=== PATIENT | male | born 1960 | race Two or more races ===

== ENCOUNTER 2024-12-07 18:14 | Emergency (ER) | payer MEDICAID ==
[~2024-12-07] VITALS: Ht 175.3 cm; Wt 91.4 kg
[2024-12-07 18:53] LABS: Basophils # (auto) 0 10 ^3/uL (0-0.2); Basophils % (auto) 0.4 % (0.0-2.0); Eosinophils # (auto) 0.1 10 ^3/uL (0-0.8); Eosinophils % (auto) 0.5 % (0.0-7.0); Hemoglobin 15.1 g/dL (13.5-17.5); Lymphocytes # (auto) 5.5 10 ^3/uL (0.4-5.4); Lymphocytes % (auto) 50.6 % (10.0-50.0); Mean Corpuscular Hgb Conc. 33.5 g/dL (32.0-36.0); Mean Corpuscular Volume 86.5 fL (80.0-100.0); Monocytes # (auto) 1.2 10 ^3/uL (0-1.3); Monocytes % (auto) 10.8 % (0.0-12.0); Neutrophils # (auto) 4.1 10 ^3/uL (1.6-8.6); Neutrophils % (auto) 37.7 % (37.0-80.0); Nucleated Red Blood Cells % 0.1 %; Platelet Count (auto) 262 10^3/uL (140-450); Red Cell Distribution Width 13.7 % (11.8-14.3); White Blood Cell 10.9 10^3/uL (4.4-10.8)
[2024-12-07 19:03] LABS: Alanine Aminotransferase 17 U/L (7-40); Albumin 4.5 g/dL (3.2-4.8); Anion Gap 11 (5-15); BUN/Creatinine Ratio 9.7 (10.0-20.0); Bilirubin, Total 0.5 mg/dL (0.2-1.0); Blood Urea Nitrogen 15 mg/dL (9-23); Carbon Dioxide 25 mmol/L (20-31); Chloride 98 mmol/L (98-107); Total Protein 6.8 g/dL (5.7-8.2)
--- NOTE | 2024-12-07 19:12 | ED.PDOC ---
History of Present Illness HPI Comments 64 y/o overweight M, with a history of DM, HTN, and polysubstance abuse, presents with c/o hyperglycemia, dizziness, nausea, and vomiting, today. Patient endorses on noticing his blood glucose levels being elevated following recent onset of remaining aforementioned symptoms, earlier, today. Patient reports c ompliancy with his Metformin medication he takes BID, with last use being this morning. He denies any hematemesis, polyuria, polydipsia, polyphagia, or other associated symptoms or modifiers at this time. Chief Complaint: Hyperglycemia Time Seen by MD: 18:45 Reviewed Notes: Nurses Notes, Medications, Allergies Allergies: Uncoded Allergies: ASA (Allergy, Unknown, 12/07/24) Home Meds Active Scripts Metformin Hydrochloride (Metformin Hcl) 1,000 Mg Tab, 1 TAB PO BID for 90 Days, #180 TAB 5 Refills Prov:TODD SHAHID MD 12/07/24 Information Source: Patient Mode of Arrival: Ambulatory Severity: Moderate Timing: Hours Duration: Since onset Prehospital treatment: None Past Medical History PAST MEDICAL HISTORY: DM, HTN Surgical History: Denies all surgeries Family History Family History: Unknown Social History Smoker: Cigarettes Alcohol: Occasionally Drugs: Marijuana Lives In: Home All Other Systems: Reviewed and Negative (Comprehensive systems review obtained and negative except for what is stated in the HPI.) Physical Exam General Appearance: Mild Distress, Other (overweight) HEENT: Normal ENT Inspection, Pharynx Normal, TMs Normal Neck: Full Range of Motion, Non-Tender, Normal, Normal Inspection Respiratory: Chest Non-Tender, Lungs Clear, No Accessory Muscle Use, No Respiratory Distress, Normal Breath Sounds Cardiovascular: No Edema, No JVD, No Murmur, No Gallop, Normal Peripheral Pulses, Regular Rate/Rhythm Breast Exam: Deferred Gastrointestinal: No Organomegaly, Non Tender, No Pulsatile Mass, Normal Bowel Sounds, Soft Genitalia: Deferred Pelvic: Deferred Rectal: Deferred Extremities: No calf tenderness, Normal capillary refill, Normal inspection, Normal range of motion, Non-tender, No pedal edema Musculoskeletal : Apperance: Normal 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 Was a procedure done?: No Differential Dx Considerations may include: hyperglycemia, inappropriate medication dosage, vertigo, gastritis, gastroenteritis, among others X-Ray, Labs, Meds, VS Vital Signs Date Time Temp Pulse Resp B/P (MAP) Pulse Ox O2 Delivery O2 Flow Rate FiO2 12/07/24 18:14 97.0 60 20 122/63 (82) 97 97.0 Lab Test 12/07/24 18:52 12/07/24 18:50 12/07/24 18:38 12/07/24 18:29 Range/Units POC Glucose 534 *H 509 *H 70-106 mg/dl White Blood Count 10.9 H 4.4-10.8 10^3/uL Red Blood Count 5.20 4.5-5.90 10^6/uL Hemoglobin 15.1 13.5-17.5 g/dL Hematocrit 45.0 41.0-53.0 % Mean Corpuscular Volume 86.5 80.0-100.0 fL Mean Corpuscular Hemoglobin 29.0 28.0-32.0 pg Mean Corpuscular Hemoglobin Concent 33.5 32.0-36.0 g/dL Red Cell Distribution Width 13.7 11.8-14.3 % Platelet Count 262 140-450 10^3/uL Mean Platelet Volume 9.2 6.9-10.8 fL Neutrophils (%) (Auto) 37.7 37.0-80.0 % Lymphocytes (%) (Auto) 50.6 H 10.0-50.0 % Monocytes (%) (Auto) 10.8 0.0-12.0 % Eosinophils (%) (Auto) 0.5 0.0-7.0 % Basophils (%) (Auto) 0.4 0.0-2.0 % Neutrophils # (Auto) 4.1 1.6-8.6 10 ^3/uL Lymphocytes # (Auto) 5.5 H 0.4-5.4 10 ^3/uL Monocytes # (Auto) 1.2 0-1.3 10 ^3/uL Eosinophils # (Auto) 0.1 0-0.8 10 ^3/uL Basophils # (Auto) 0 0-0.2 10 ^3/uL Nucleated Red Blood Cells 0.1 % Sodium Level 134 L 136-145 mmol/L Potassium Level 4.0 3.5-5.1 mmol/L Chloride Level 98 98-107 mmol/L Carbon Dioxide Level 25 20-31 mmol/L Anion Gap 11 5-15 Blood Urea Nitrogen 15 9-23 mg/dL Creatinine 1.54 H 0.700-1.30 mg/dL Glomerular Filtration Rate Calc 50 >90 mL/min BUN/Creatinine Ratio 9.7 L 10.0-20.0 Serum Glucose 514 *H 74-106 mg/dL Calcium Level 10.0 8.7-10.4 mg/dL Total Bilirubin 0.5 0.2-1.0 mg/dL Aspartate Amino Transferase (AST) < 8 L 13-40 U/L Alanine Aminotransferase (ALT) 17 7-40 U/L Alkaline Phosphatase 121 H 46-116 U/L Total Protein 6.8 5.7-8.2 g/dL Albumin 4.5 3.2-4.8 g/dL Blood Gas Specimen Type Venous Blood Gas Sample Site Vbg - n/a Blood Gas Patient Temperature 37.0 Arterial Blood Date Drawn [id number] Lb Test Yes Venous Blood pH 7.385 7.320-7.430 Venous Blood pCO2 at Patient Temp 34.4 L 38.0-54.0 mmHg Venous Blood pO2 at Patient Temp 47.8 23.0-48.0 mmHg Venous Blood HCO3 20.1 L 22.0-29.0 mmol/L Venous Blood Base Excess -4.0 L -2.0-3.0 mmol/L Blood Gas Modality Room air FiO2 % 21.0 Time of 1ST Reevaluation: 19:15 Reevaluation 1ST: Unchanged Patient Education/Counseling: Diagnosis, Treatment Family Education/Counseling: No Family Present Departure 1 Departure Time of Disposition: 21:19 Impression: Primary Impression: Type 2 diabetes mellitus with hyperglycemia Disposition: HOME / SELF CARE / HOMELESS Condition: Stable e-Prescriptions Metformin Hydrochloride (Metformin Hcl) 1,000 Mg Tab 1 TAB PO BID for 90 Days, #180 TAB 5 Refills Prov: TODD SHAHID MD 12/07/24 Discharged With: Self Critical Care Note Critical Care Time?: No Stability Stability form required: No Heart Score Heart Score: Heart Score Response (Comments) Value History N/A 0 EKG N/A 0 Age N/A 0 Risk Factors N/A 0 Troponin N/A 0 Total 0 I personally scribed for TODD SHAHID MD ([email or web address]) on 12/07/24 at 19:12. Electronically submitted by Rickie Verdugo [email or web address]). TODD SHAHID MD Dec 07, 2024 19:12
[2024-12-07 19:20] LABS: Alkaline Phosphatase 121 U/L (46-116); Aspartate Aminotransferase < 8 U/L (13-40); Sodium 134 mmol/L (136-145)
[2024-12-07 19:23] LABS: Glucose 514 mg/dL (74-106)
[2024-12-07] MEDS ORDERED: METF-372 PO (21:18)
[2024-12-07 22:15] VITALS: BP 122/63; PULSE 60; RESP 20; TEMP 98.7; O2SAT 98
[2024-12-07] MEDS: InsuLIN REG 1unit/0.01ml Soln (100units/ml) SC ONE ×2 (22:20→22:26)
[2024-12-07] MEDS: SODIUM CHLORIDE 0.9% 1,000 ML IVB ONE (22:24)
--- NOTE | 2024-12-08 13:14 | ECG ---
[facility] Test Date: 2024-12-07 Test Time: 18:56:09 Pat Name: RITESH VELÁSQUEZ Department: ER Room: Gender: M [place] Chopper: [place] : 1960 Requested By: TODD SHAHID Order Number: [id number] Reading MD: Shivam Silvestre Measurements Intervals Percy Rate: 63 P: 10 IA: 141 QRS: -68 QRSD: 129 T: 80 QT: 428 QTc: 439 Interpretive Statements Sinus rhythm Probable left atrial enlargement LVH with IVCD, LAD and secondary repol abnrm Electronically Signed On 12-08-2024 18:50:15 PDT by Shivam Silvestre Please click the below link to view image of tracing.
== END 2024-12-07 23:09 | disposition home or self-care (01) ==
LOC: ER 18:14
DX: E11.65 Type 2 diabetes mellitus with hyperglycemia (principal); I10 Essential (primary) hypertension; F17.210 Nicotine dependence, cigarettes, uncomplicated; F12.90 Cannabis use, unspecified, uncomplicated; Z88.6 Allergy status to analgesic agent; Z79.84 Long term (current) use of oral hypoglycemic drugs
CPT/HCPCS: 36415; 36600; 80053; 82805; 82947; 85025; 93005; 96372; 99284; J1815; 82962